=== PATIENT | male | born 1980 | race Caucasian/White ===

== ENCOUNTER 2024-12-17 14:40 | Emergency (ER) | payer OTHER ==
[~2024-12-17] VITALS: Ht 185.4 cm; Wt 133.8 kg
[~2024-12-17 14:40] MED LIST: CEPH500 PO; LOSHYD100 PO; Percocet 5-3251 EACH PO; SULTRIDS PO
[2024-12-17 16:00] VITALS: BP 126/91
== END 2024-12-17 17:07 | disposition home or self-care (01) ==
LOC: ER 14:40
DX: J34.89 Other specified disorders of nose and nasal sinuses (principal); R51.9 Headache, unspecified; Z88.6 Allergy status to analgesic agent
CPT/HCPCS: 70486; 93005; 93010; 99284-25

== ENCOUNTER 2025-06-17 18:15 | Emergency (ER) | payer OTHER ==
[~2025-06-17] VITALS: Ht 185.4 cm; Wt 132.9 kg
[2025-06-17 18:20] VITALS: BP 124/91
[2025-06-17] MEDS ORDERED: Lidocaine 4% 1 Patch TOP ONE (18:35)
[2025-06-17] MEDS ORDERED: Ketorolac Tromethamine 15mg Vial IV ONE (18:35)
[2025-06-17] MEDS ORDERED: ACET500 PO (18:36)
[2025-06-17] MEDS ORDERED: LIDO700A20 TOP (18:36)
[2025-06-17] MEDS ORDERED: CYCL10 PO (18:36)
[2025-06-17] MEDS ORDERED: AMLO5 PO (18:48)
[2025-06-17] MEDS ORDERED: SERT100 PO (18:48)
[2025-06-17] MEDS ORDERED: HYDCHL25 PO (18:48)
[2025-06-17] MEDS ORDERED: Vitamin D1000 UNI1 PO (18:49)
[2025-06-17] MEDS ORDERED: GABA300 PO (18:49)
[2025-06-17] MEDS ORDERED: ATOR40TA PO (18:49)
[2025-06-17] MEDS ORDERED: PANT20 PO (18:50)
[2025-06-17] MEDS ORDERED: OLAN5 PO (18:50)
[2025-06-17] MEDS ORDERED: LITH300C PO (18:50)
[2025-06-17] MEDS ORDERED: Robaxin750 MG PO (18:50)
== END 2025-06-17 20:16 | disposition home or self-care (01) ==
LOC: ER 18:15
DX: M62.830 Muscle spasm of back (principal); V89.2XXA Person injured in unspecified motor-vehicle accident, traffic, initial encounter; Z79.899 Other long term (current) drug therapy; Z88.6 Allergy status to analgesic agent; Z88.8 Allergy status to other drugs, medicaments and biological substances
CPT/HCPCS: 96374; 99283-25; A9270; J1885